=== PATIENT | female | born 1990 | race Caucasian/White ===

== ENCOUNTER 2016-11-13 04:29 | Emergency (ER) | payer OTHER ==
[2016-11-13] MEDS ORDERED: ONDANSETRON 4 MG/2 ML VIAL IVP STA (05:44)
[2016-11-13] MEDS ORDERED: SODIUM CHLORIDE 0.9% 1,000 ML IV ONE (05:44)
[2016-11-13] MEDS ORDERED: ONDANSETRON 4 MG/2 ML VIAL ONE (05:58)
== END 2016-11-13 08:59 | disposition home or self-care (01) ==
DX: K52.9 Noninfective gastroenteritis and colitis, unspecified (principal); E86.0 Dehydration; Z87.891 Personal history of nicotine dependence

== ENCOUNTER 2016-11-21 12:00 | Outpatient (CLI) | payer OTHER | END 2016-11-21 12:01 | disposition home or self-care (01) | DX: K52.9 Noninfective gastroenteritis and colitis, unspecified (principal) ==

== ENCOUNTER 2017-10-01 18:11 | Outpatient (CLI) | payer OTHER | END 2017-10-01 18:12 | disposition critical access hospital (66) | LOC: EMS 18:11 | PROVIDERS: ATTEND Surgery | DX: M54.2 Cervicalgia (principal); R20.2 Paresthesia of skin; V49.9XXA Car occupant (driver) (passenger) injured in unspecified traffic accident, initial encounter; Y92.414 Local residential or business street as the place of occurrence of the external cause | CPT/HCPCS: A0425; A0429 ==

== ENCOUNTER 2017-10-01 18:23 | Emergency (ER) | payer OTHER ==
[2017-10-01] MEDS ORDERED: LORazepam 2 MG/ML VIAL IVP STA (18:37)
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
[2017-10-01] MEDS ORDERED: LORazepam 2 MG/ML VIAL ONE (19:05)
[2017-10-01 19:07] LABS: BILIRUBIN,URINE NEGATIVE (NEGATIVE)
[2017-10-01 19:09] LABS: BASOPHILS # (AUTO) 0.1 10^3/uL (0.0-0.1); BASOPHILS % (AUTO) 1.2 %; EOSINOPHILS # (AUTO) 0.1 10^3/uL (0.0-0.7); EOSINOPHILS % (AUTO) 0.9 %; HCT - HEMATOCRIT 38.3 % (37.0-47.0); HGB - HEMOGLOBIN 12.8 g/dL (12.0-16.0); LYMPHOCYTES # (AUTO) 2.3 10^3/uL (1.5-3.5); LYMPHOCYTES % (AUTO) 35.5 %; MEAN CORPUSCULAR HEMOGLOBIN 31.2 pg (27.0-31.0); MEAN CORPUSCULAR HGB CONC 33.4 g/dL (32.0-36.0); MEAN CORPUSCULAR VOLUME 93.5 fL (81.0-99.0); MEAN PLATELET VOLUME 7.9 fL (7.9-10.8); MONOCYTES # (AUTO) 0.5 10^3/uL (0.0-1.0); NEUTROPHILS # (AUTO) 3.5 10^3/uL (1.5-6.6); NEUTROPHILS % (AUTO) 54.4 %; RED CELL DISTRIBUTION WIDTH 12.8 % (12.0-15.0); UNCORRECTED WHITE BLOOD COUNT 6.4 x10^3/uL; WHITE BLOOD COUNT 6.4 x10^3/uL (4.8-10.8)
[2017-10-01 19:10] LABS: HCG UR QUAL NEGATIVE; UA w/ MICROSCOPIC CHARGE YES
[2017-10-01 19:19] LABS: UR CULTURE IF IND NOT INDICATED; WBC,URINE 0-3 /HPF (0-5)
[2017-10-01 19:21] LABS: ALBUMIN/GLOBULIN RATIO 1.5 (1.0-2.2); BILIRUBIN,TOTAL 0.6 mg/dL (0.2-1.0); CALCIUM 8.6 mg/dL (8.5-10.3); CREATININE 0.7 mg/dL (0.4-1.0); POTASSIUM 3.1 mmol/L (3.5-5.0); TOTAL PROTEIN 6.9 g/dL (6.7-8.2)
[2017-10-01] MEDS ORDERED: KETOROLAC 60 MG/2 ML VIAL IVP STA (19:22)
[2017-10-01] MEDS ORDERED: KETOROLAC 30 MG/ML VIAL ONE (19:43)
[2017-10-01] MEDS ORDERED: diazePAM INJ 5 MG/ML SYRINGE IVP STA (20:06)
--- NOTE | 2017-10-01 20:37 | CT Preliminary Report ---
Exam: CT HEAD W/O IMPRESSION: No acute intracranial abnormality. [facility] SITE ID: [id number]
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
--- NOTE | 2017-10-01 20:40 | CT Preliminary Report ---
Exam: CT CERVICAL SPINE W/O IMPRESSION: Normal cervical spine CT. [facility] SITE ID: [id number]
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
[2017-10-01] MEDS ORDERED: HYDROcod/ACETAM 5/325 MG TABLET PO STA (20:50)
[2017-10-01] MEDS ORDERED: HYDROcod/ACETAM 5/325 MG TABLET ONE (21:00)
[2017-10-01] MEDS ORDERED: POTASSIUM BICARB 25 MEQ TABLET PO STA (21:08)
[2017-10-01] MEDS ORDERED: HYDROcod/ACET 5/325 Prepack 6 PO ONE ×2 (21:18→21:27)
[2017-10-01] MEDS ORDERED: POTASSIUM BICARB 25 MEQ TABLET PO ONE (21:28)
[2017-10-01 21:53] VITALS: BP 127/84
== END 2017-10-01 21:53 | disposition home or self-care (01) ==
LOC: EDUNIT# → ED 18:23 → SUPCPDRO 18:23 → ED 21:53
DX: S16.1XXA Strain of muscle, fascia and tendon at neck level, initial encounter (principal); V48.5XXA Car driver injured in noncollision transport accident in traffic accident, initial encounter; Y92.488 Other paved roadways as the place of occurrence of the external cause; E05.90 Thyrotoxicosis, unspecified without thyrotoxic crisis or storm; Z87.891 Personal history of nicotine dependence
CPT/HCPCS: 36415; 70450; 72125; 80053; 81001; 81025; 83690; 85025; 96374; 96375; 99284; A9270; J2060; 81003; 87086

== ENCOUNTER 2017-11-20 16:00 | Outpatient (CLI) | payer OTHER | END 2017-11-20 16:01 | disposition home or self-care (01) | LOC: LAB.WCP 16:00 | PROVIDERS: ATTEND Physician Assistant Medical | DX: J02.9 Acute pharyngitis, unspecified (principal) | CPT/HCPCS: 87070 ==

== ENCOUNTER 2018-05-06 10:47 | Emergency (ER) | payer OTHER ==
[2018-05-06 11:16] VITALS: BP 119/79
--- NOTE | 2018-05-06 12:23 | ED Physician Documentation ---
PD HPI LOWER EXT INJURY - Stated complaint Stated Complaint: R KNEE INJ - Chief complaint Chief Complaint: Ext Problem - History obtained from History obtained from: Patient - History of Present Illness PD HPI LOW EXT INJURY LOCATION: Right, Knee Type of injury: Twist Where injury occurred: Work Timing - onset: How many weeks ago (2) Timing - duration: Weeks (2) Timing - details: Abrupt onset, Still present (knee hurts with ROM and walking. Has small knee supporter on. Had xrays which were okay and taking NSAIDs. PCP put in for approval for MRI and awaiting that. Patient to ER hoping to get advanced imaging sooner.) Worsened by: Palpating, Other (walking) Associated symptoms: No: Weakness, Numbness Similar symptoms before: Has not had sx before Recently seen: Clinic Review of Systems Constitutional: denies: Fever Nose: denies: Rhinorrhea / runny nose, Congestion Throat: denies: Sore throat Respiratory: denies: Cough Skin: denies: Rash, Lesions Musculoskeletal: reports: Joint pain (right knee) Neurologic: denies: Focal weakness, Numbness PD PAST MEDICAL HISTORY - Past Medical History Past Medical History: Yes Cardiovascular: Murmur Endocrine/Autoimmune: HyPERthyroidism GI: 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 : Chronic bladder infection Psych: Anxiety, Panic attacks - Past Surgical History Past Surgical History: Yes General: Other - Present Medications Home Medications: Ambulatory Orders Medication Instructions Recorded Confirmed ALPRAZolam [Alprazolam] 0.25 mg PO DAILY PRN 03/15/16 10/01/17 Zolmitriptan [Zomig] 5 mg PO DAILY PRN 03/15/16 10/01/17 oxyCODONE/ACET 5/325 [Percocet 5 1 - 2 tab PO Q4-6H PRN #20 tablet 03/17/1609/07 mg/325 mg] Control Pills 1 tab PO DAILY 10/08/16 10/01/17 Ibuprofen [Motrin] 800 mg PO Q8H PRN #30 tablet 10/08/16 10/01/17 Ondansetron Odt [Zofran] 4 mg TL Q6H PRN #10 tablet 11/13/16 10/01/17 Dexamethasone [Decadron] 4 mg PO DAILY #5 tablet 05/06/18 Naproxen [Naprosyn] 500 mg PO BID PRN #20 tablet 05/06/18 Oxycodone HCl/Acetaminophen 1 each PO Q6H PRN #20 tablet 05/06/18 [Percocet 5-325 mg Tablet] - Allergies Allergies/Adverse Reactions: Allergies Allergy/AdvReac Type Severity Reaction Status Date / Time ciprofloxacin [From Cipro] Allergy Hives Verified 05/06/18 11:16 ciprofloxacin HCl * Allergy Hives Verified 05/06/18 11:16 [From Cipro] fluticasone propionate * Allergy light Verified 05/06/18 11:16 [From Flonase] headed Sulfa (Sulfonamide Allergy Rash Verified 05/06/18 11:16 Antibiotics) sulfamethoxazole Allergy Unknown Verified 05/06/18 11:16 [From Septra] tramadol Allergy racing Verified 05/06/18 11:16 heart trimethoprim [From Septra] Allergy Unknown Verified 05/06/18 11:16 - Social History Does the pt smoke?: Yes Smoking Status: Current every day smoker Does the pt drink ETOH?: No Does the pt have substance abuse?: No - Immunizations Immunizations are current?: No Immunizations: TDAP >10years/unknown - POLST Patient has POLST: No PD ED PE NORMAL - Vitals Vital signs reviewed: Yes - General General: Alert and oriented X 3, Well developed/nourished, Other (appears in pain and also upset about the process of her knee not improving readily, getting exams, etc.) - Derm Derm: Normal color, Warm and dry, No rash - Extremities Extremities: No edema, No calf tenderness / cord, Other (no effusion in the knee. Right knee tender anterior and to sides. Not at collaterals per se. Ligament testing hurts in all directions some, but no gross laxity. impaction ( [place]) causes pain. ) - Neuro Neuro: No motor deficit, No sensory deficit Results - Vitals Vitals: Vital Signs - 24 hr 05/06/18 11:08 Temperature 37.1 C Heart Rate 79 Respiratory 16 Rate Blood Pressure 119/79 O2 Saturation 99 Oxygen O2 Source Room air PD MEDICAL DECISION MAKING - ED course Complexity details: considered differential (sounds like meniscal process. Given hinged knee brace (regular one she says puts pressure on kneecap and hurts too much). She feels this is okay and supports. She and friend were hoping coming to ER would get them MRI more promptly. I explained that nonemergent MRIs still need pre-approval/etc even through the ER. ), d/w patient - Sepsis Event Vital Signs: Vital Signs - 24 hr 05/06/18 11:08 Temperature 37.1 C Heart Rate 79 Respiratory 16 Rate Blood Pressure 119/79 O2 Saturation 99 Oxygen O2 Source Room air Departure - Departure Disposition: 01 Home, Self Care Clinical Impression: Right knee injury Qualifiers: Encounter type: initial encounter Qualified Code(s): S89.91XA - Unspecified injury of right lower leg, initial encounter Condition: Stable Record reviewed to determine appropriate education?: Yes Instructions: ED Meniscal Injury Knee Poss Follow-Up: [facility] [Provider Group] [place] isidro Marshall [Provider Group] Prescriptions: Dexamethasone [Decadron] 4 mg PO DAILY #5 tablet Naproxen [Naprosyn] 500 mg PO BID PRN #20 tablet PRN Reason: Pain Oxycodone HCl/Acetaminophen [Percocet 5-325 mg Tablet] 1 each PO Q6H PRN #20 tablet PRN Reason: Pain Comments: Try the hinged knee brace set to just slight range of motion along with your crutches for partial to no weightbearing. See if that improves the knee little bit better with better support. We can try a different anti-inflammatory of naproxen nonsteroidal anti-inflammatory and also Decadron steroid all anti- inflammatory. Follow-up with your primary care or orthopedics regarding further assessment. The MRI will need to get approval through [facility]. I know it can be frustrating. The above treatments would be appropriate for some of the findings that would be seen on MRI such as cartilage or ligament injury initially. So you are still doing the right things for the problems. Discharge Date/Time: 05/06/18 13:31
[2018-05-06] MEDS ORDERED: oxyCOD/ACETAMIN 5 MG/325 MG TABLET PO STA (12:43)
[2018-05-06] MEDS ORDERED: NAPROXEN 250 MG TABLET PO STA (12:43)
[2018-05-06] MEDS ORDERED: DEXAMETHASONE 10 MG/ML VIAL PO STA (12:43)
== END 2018-05-06 13:31 | disposition home or self-care (01) ==
LOC: ED 10:47
DX: S89.91XA Unspecified injury of right lower leg, initial encounter (principal); X58.XXXA Exposure to other specified factors, initial encounter; Y92.89 Other specified places as the place of occurrence of the external cause; Y99.0 Civilian activity done for income or pay
CPT/HCPCS: 99282; 99283; A9270

== ENCOUNTER 2018-05-16 08:32 | Outpatient (CLI) | payer OTHER ==
--- NOTE | 2018-05-16 10:53 | MRI Report ---
Procedure Date: 05/16/2018 Accession Number: [id number] / [id number] Procedure: MRI - Knee RT W/O CPT Code: FULL RESULT: EXAM: RIGHT KNEE MRI WITHOUT CONTRAST EXAM DATE: 05/16/2018 09:30 AM. CLINICAL HISTORY: Sprain of other specified parts of right knee. COMPARISON: Knee 2-view right 04/23/2018. TECHNIQUE: Multiplanar, multisequence T1-weighted and fluid-sensitive sequences of the knee without contrast. Other: None. FINDINGS: Bones: Mild marrow edema of the medial patella. Cartilage appears normal. Remaining bony structures unremarkable. Articular Cartilage: Unremarkable. Medial Meniscus: The medial meniscus is intact. Lateral Meniscus: The lateral meniscus is intact. Cruciate Ligaments: The anterior and posterior cruciate ligaments are intact. Collateral Ligaments: The medial collateral and lateral collateral ligamentous structures are intact. Tendons: The quadriceps, patellar, semimembranosus, and popliteus tendons are unremarkable. Musculature: No edema or fatty atrophy. Other: Trace joint fluid. No popliteal cyst. No loose bodies. The medial and lateral retinacula are intact. Mild posterior medial soft tissue edema. IMPRESSION: 1. Mild marrow edema at the medial patella likely a bone bruise. 2. No evidence of internal derangement. 3. Mild posterior medial soft tissue contusion. [facility] MUSCULOSKELETAL RADIOLOGY SECTION
== END 2018-05-16 08:33 | disposition home or self-care (01) ==
LOC: DI 08:32
PROVIDERS: ATTEND Physician Assistant Medical
DX: S83.8X1A Sprain of other specified parts of right knee, initial encounter (principal); S80.01XA Contusion of right knee, initial encounter; B34.9 Viral infection, unspecified

== ENCOUNTER 2019-01-23 08:51 | Emergency (ER) | payer OTHER ==
[2019-01-23 09:10] VITALS: BP 133/85
[2019-01-23] MEDS ORDERED: DEXAMETHASONE 10 MG/ML VIAL PO STA (09:34)
--- NOTE | 2019-01-23 09:34 | ED Physician Documentation ---
PD HPI HEENT - Stated complaint Stated Complaint: FEVER,ACHES,COUGH - Chief complaint Chief Complaint: General - History obtained from History obtained from: Patient - History of Present Illness Timing - onset: How many days ago (3-4) Timing - duration: Days (3-4) Timing - details: Gradual onset, Still present Location: Right ear, Left ear, Sinuses Improves: Medication Worsens: Swalllowing Associated symptoms: Fever, Congestion, Rhinorrhea, Swollen nodes, Facial swelling, Headache, Cough Similar symptoms before: Has not had sx before Recently seen: Not recently seen - Additional information Additional information: Previously well 28-year-old female has developed nasal congestion cough fever chills myalgias and sinus pressure as well as ear pain that has migrated from the right to the left ear. Review of Systems Constitutional: reports: Fever, Chills, Myalgias, Fatigue Eyes: denies: Decreased vision Ears: reports: Ear pain Nose: reports: Rhinorrhea / runny nose, Congestion, Sinus pressure / pain Throat: reports: Sore throat Cardiac: denies: Chest pain / pressure, Palpitations Respiratory: reports: Cough. 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 : Chronic bladder infection Psych: Anxiety, Panic attacks - Past Surgical History Past Surgical History: Yes General: Other - Present Medications Home Medications: Ambulatory Orders Medication Instructions Recorded Confirmed ALPRAZolam [Alprazolam] 0.25 mg PO DAILY PRN 03/15/16 10/01/17 Zolmitriptan [Zomig] 5 mg PO DAILY PRN 03/15/16 10/01/17 oxyCODONE/ACET 5/325 [Percocet 5 1 - 2 tab PO Q4-6H PRN #20 tablet 03/17/16 10/01/17 mg/325 mg] Control Pills 1 tab PO DAILY 10/08/16 10/01/17 Ibuprofen [Motrin] 800 mg PO Q8H PRN #30 tablet 10/08/16 10/01/17 Ondansetron Odt [Zofran] 4 mg TL Q6H PRN #10 tablet 11/13/16 10/01/17 Dexamethasone [Decadron] 4 mg PO DAILY #5 tablet 05/06/18 Naproxen [Naprosyn] 500 mg PO BID PRN #20 tablet 05/06/18 Oxycodone HCl/Acetaminophen 1 each PO Q6H PRN #20 tablet 05/06/18 [Percocet 5-325 mg Tablet] Amox/Clav 875/125 [Augmentin] 1 each PO Q12H #20 tablet 01/23/19 - Allergies Allergies/Adverse Reactions: Allergies Allergy/AdvReac Type Severity Reaction Status Date / Time ciprofloxacin [From Cipro] Allergy Hives Verified 01/23/19 09:10 ciprofloxacin HCl * Allergy Hives Verified 01/23/19 09:10 [From Cipro] fluticasone propionate * Allergy light Verified 01/23/19 09:10 [From Flonase] headed Sulfa (Sulfonamide Allergy Rash Verified 01/23/19 09:10 Antibiotics) sulfamethoxazole Allergy Unknown Verified 01/23/19 09:10 [From Septra] tramadol Allergy racing Verified 01/23/19 09:10 heart trimethoprim [From Septra] Allergy Unknown Verified 01/23/19 09:10 - Social History Does the pt smoke?: Yes Smoking Status: Current every day smoker Does the pt drink ETOH?: No Does the pt have substance abuse?: No - Immunizations Immunizations are current?: No Immunizations: TDAP >10years/unknown - POLST Patient has POLST: No PD ED PE NORMAL - Vitals Vital signs reviewed: Yes (hypertension mild diastolic ) - General General: Alert and oriented X 3, No acute distress, Well developed/nourished, Other (obvious mid facial swelling ) - HEENT HEENT: Atraumatic, PERRL, EOMI, Pharynx benign, Other (The left TM is inflamed with rounding of the landmarks and the right is only peripherally inflamed. There is bilateral maxillary sinus point tenderness) - Neck Neck: Supple, no meningeal sign, No bony TTP - Cardiac Cardiac: RRR, No murmur - Respiratory Respiratory: No respiratory distress, Clear bilaterally - Abdomen Abdomen: Soft, Non tender - Back Back: No CVA TTP, No spinal TTP - Derm Derm: Normal color, Warm and dry, No rash - Extremities Extremities: No deformity, No edema - Neuro Neuro: Alert and oriented X 3, solution specialist 2-12 intact, No motor deficit, No sensory deficit, Normal speech Eye Opening: Spontaneous Motor: Obeys Commands Verbal: Oriented GCS Score: 15 - Psych Psych: Normal mood, Normal affect Results - Vitals Vitals: Vital Signs - 24 hr 01/23/19 09:00 Temperature 36.6 C Heart Rate 100 Respiratory 16 Rate Blood Pressure 133/85 H O2 Saturation 99 Oxygen O2 Source Room air - Labs Labs: Laboratory Tests 01/23/19 09:05 Influenza A (Rapid) Negative Influenza B (Rapid) Negative PD MEDICAL DECISION MAKING - ED course Complexity details: reviewed old records, considered differential, d/w patient ED course: 28-year-old female with acute respiratory illness has otitis on exam and sinusitis and she is administered dexamethasone 10 mg orally we will place her on some Augmentin and she will continue her DayQuil. Departure - Departure Disposition: 01 Home, Self Care Clinical Impression: Sinusitis Qualifiers: Sinusitis location: maxillary Chronicity: acute Recurrence: recurrent Qualified Code(s): J01.01 - Acute recurrent maxillary sinusitis Otitis media Qualifiers: Otitis media type: suppurative Chronicity: acute Laterality: left Recurrence: not specified as recurrent Spontaneous tympanic membrane rupture: without spontaneous rupture Qualified Code(s): H66.002 - Acute suppurative otitis media without spontaneous rupture of ear drum, left ear Condition: Stable Instructions: ED Sinusitis Abx Tx, ED Otitis Media Acute Adult Follow-Up: Dorothy Alvarez PA-C [Primary Care Provider] - Prescriptions: Amox/Clav 875/125 [Augmentin] 1 each PO Q12H #20 tablet Forms: Activity restrictions
[2019-01-23] MEDS ORDERED: CHERRY SYRUP 10 ML UDC PO ONE (09:42)
== END 2019-01-23 09:41 | disposition home or self-care (01) ==
LOC: ED 08:51
DX: J01.01 Acute recurrent maxillary sinusitis (principal); H66.002 Acute suppurative otitis media without spontaneous rupture of ear drum, left ear; F17.200 Nicotine dependence, unspecified, uncomplicated
CPT/HCPCS: 87275; 87276; 99283; A9270

== ENCOUNTER 2019-06-12 10:23 | Emergency (ER) | payer OTHER ==
[2019-06-12] MEDS ORDERED: IBUPROFEN 800 MG TABLET PO STA (11:21)
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
[2019-06-12 11:34] VITALS: BP 118/84
== END 2019-06-12 11:33 | disposition home or self-care (01) ==
LOC: ED 10:23
DX: S16.1XXA Strain of muscle, fascia and tendon at neck level, initial encounter (principal); V43.12XA Car passenger injured in collision with other type car in nontraffic accident, initial encounter; Y93.89 Activity, other specified; Y92.511 Restaurant or cafe as the place of occurrence of the external cause; F17.200 Nicotine dependence, unspecified, uncomplicated
CPT/HCPCS: 99282; 99284; A9270

== ENCOUNTER 2019-06-14 21:18 | Emergency (ER) | payer OTHER ==
[2019-06-14 21:31] VITALS: BP 127/96
--- NOTE | 2019-06-14 22:19 | XRAY Report ---
Reason: wellness assistant lid vs foot Procedure Date: 06/14/2019 Accession Number: [id number] / [id number] Procedure: XR - Foot 3 View LT CPT Code: FULL RESULT: EXAM: LEFT FOOT RADIOGRAPHY EXAM DATE: 06/14/2019 09:47 PM. 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 Sas Programmer Analyst was dropped on the dorsum of the foot. Left-sided foot pain. COMPARISON: None. TECHNIQUE: 3 views. FINDINGS: Bones: Artifact versus a subtle nondisplaced transverse fracture at the base of the third metatarsal. Joints: No dislocation. Soft Tissues: No significant soft tissue swelling. IMPRESSION: Artifact versus a subtle nondisplaced fracture at the base of the third metatarsal. Correlation with focal tenderness over the third metatarsal base would be helpful. RADIA
[2019-06-14] MEDS ORDERED: HYDROcod/ACET 5/325 Prepack 4 PO STA (22:35)
--- NOTE | 2019-06-14 22:38 | ED Physician Documentation ---
PD HPI LOWER EXT INJURY - Stated complaint Stated Complaint: L FOOT INJURY - Chief complaint Chief Complaint: Ext Problem - History obtained from History obtained from: Patient - History of Present Illness PD HPI LOW EXT INJURY LOCATION: Left (29-year-old woman was at work tonight and dropped a piece of equipment on her left foot and has severe pain there. Unable to walk. 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 : Chronic bladder infection Psych: Anxiety, Panic attacks - Past Surgical History Past Surgical History: Yes General: Other - Present Medications Home Medications: Ambulatory Orders Medication Instructions Recorded Confirmed ALPRAZolam [Alprazolam] 0.25 mg PO DAILY PRN 03/15/16 10/01/17 oxyCODONE/ACET 5/325 [Percocet 5 1 - 2 tab PO Q4-6H PRN #20 tablet 03/17/16 10/01/17 mg/325 mg] Control Pills 1 tab PO DAILY 10/08/16 10/01/17 Hydrocodone/Acetaminophen 1 - 2 each PO Q6H PRN #14 tablet 06/14/19 [Hydrocodon-Acetaminophen 5-325] - Allergies Allergies/Adverse Reactions: Allergies Allergy/AdvReac Type Severity Reaction Status Date / Time ciprofloxacin [From Cipro] Allergy Hives Verified 06/14/19 21:25 ciprofloxacin HCl * Allergy Hives Verified 06/14/19 21:25 [From Cipro] fluticasone propionate * Allergy light Verified 06/14/19 21:25 [From Flonase] headed Sulfa (Sulfonamide Allergy Rash Verified 06/14/19 21:25 Antibiotics) sulfamethoxazole Allergy Unknown Verified 06/14/19 21:25 [From Septra] tramadol Allergy racing Verified 06/14/19 21:25 heart trimethoprim [From Septra] Allergy Unknown Verified 06/14/19 21:25 - Social History Does the pt smoke?: Yes Smoking Status: Current every day smoker Does the pt drink ETOH?: No Does the pt have substance abuse?: No - Immunizations Immunizations are current?: No Immunizations: TDAP >10years/unknown - POLST Patient has POLST: No PD ED PE NORMAL - Vitals Vital signs reviewed: Yes - General General: Alert and oriented X 3, No acute distress - Extremities Extremities: Other (She is focally tender at the base of the third metatarsal of the left foot without deformity. Normal neurovascular function.) - Neuro Neuro: Alert and oriented X 3, Normal speech Results - Vitals Vitals: Vital Signs - 24 hr 06/14/19 21:23 Temperature 36.5 C Heart Rate 103 H Respiratory 18 Rate Blood Pressure 127/96 H O2 Saturation 100 Oxygen O2 Source Room air - Rads (name of study) Three-view left foot Radiology: EMP read contemporaneously (Questionable nondisplaced fracture at the proximal third metatarsal) Procedures - Splint (location) Left foot Splint applied by: Tech Type of splint: Fiberglass, Short leg, Posterior Other: Patient tolerated well, No complications, Neurovascular intact, Crutches provided Departure - Departure Disposition: 01 Home, Self Care Clinical Impression: Closed fracture of third metatarsal bone of left foot Qualifiers: Encounter type: initial encounter Fracture alignment: nondisplaced Qualified Code(s): S92.335A - Nondisplaced fracture of third metatarsal bone, left foot, initial encounter for closed fracture Condition: Good Record reviewed to determine appropriate education?: Yes Instructions: ED Fx Foot Follow-Up: [facility] [Provider Group] - Within 1 week Prescriptions: Hydrocodone/Acetaminophen [Hydrocodon-Acetaminophen 5-325] 1 - 2 each PO Q6H PRN #14 tablet PRN Reason: pain Comments: Keep the splint on and dry, do not walk or bear weight on the foot until following up with orthopedics. Return for new or worsening symptoms. Forms: Activity restrictions
[2019-06-14] MEDS ORDERED: KETOROLAC 60 MG/2 ML VIAL IM STA (22:59)
== END 2019-06-14 23:45 | disposition home or self-care (01) ==
LOC: ED 21:18
DX: S92.335A Nondisplaced fracture of third metatarsal bone, left foot, initial encounter for closed fracture (principal); W20.8XXA Other cause of strike by thrown, projected or falling object, initial encounter; Y99.0 Civilian activity done for income or pay; F17.200 Nicotine dependence, unspecified, uncomplicated
CPT/HCPCS: 1040M; 29515; 73630; 96372; 99283

== ENCOUNTER 2020-06-12 12:31 | Emergency (ER) | payer OTHER ==
[2020-06-12] MEDS ORDERED: DEXAMETHASONE 10 MG/ML VIAL IM STA (12:55)
[2020-06-12] MEDS ORDERED: HYDROmorphone 1 MG/ML CARPUJECT IM STA (12:55)
--- NOTE | 2020-06-12 12:58 | ED Physician Documentation ---
PD HPI BACK PAIN - Stated complaint Stated Complaint: BACK PX/LEG NUMB - Chief complaint Chief Complaint: Back Pain - History obtained from History obtained from: Patient - Additional information Additional information: 8 days ago she was carrying a keg, actually several kegs upstairs at work. She felt sore after but then has developed progressive low back pain on the left side radiating into the left leg with numbness of the anterior left mcfadden. No bowel or bladder problems. No saddle anesthesia, no incontinence, no fevers. No history of back issues. 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 : Chronic bladder infection Psych: Anxiety, Panic attacks - Past Surgical History Past Surgical History: Yes General: Other - Present Medications Home Medications: Ambulatory Orders Medication Instructions Recorded Confirmed ALPRAZolam [Alprazolam] 0.25 mg PO DAILY PRN 03/15/16 10/01/17 oxyCODONE/ACET 5/325 [Percocet 5 1 - 2 tab PO Q4-6H PRN #20 tablet 03/17/16 10/01/17 mg/325 mg] Control Pills 1 tab PO DAILY 10/08/16 10/01/17 Hydrocodone/Acetaminophen 1 - 2 each PO Q6H PRN #14 tablet 06/14/19 [Hydrocodon-Acetaminophen 5-325] Cyclobenzaprine [Flexeril] 10 mg PO TID PRN #20 tablet 06/12/20 Oxycodone HCl/Acetaminophen 1 - 2 each PO Q6H PRN #14 tablet 06/12/20 [Percocet 5-325 mg Tablet] predniSONE [Deltasone] 20 mg PO [id number] #21 tab 06/12/20 - Allergies Allergies/Adverse Reactions: Allergies Allergy/AdvReac Type Severity Reaction Status Date / Time ciprofloxacin [From Cipro] Allergy Hives Verified 06/12/20 12:38 ciprofloxacin HCl * Allergy Hives Verified 06/12/20 12:38 [From Cipro] fluticasone propionate * Allergy light Verified 06/12/20 12:38 [From Flonase] headed Sulfa (Sulfonamide Allergy Rash Verified 06/12/20 12:38 Antibiotics) sulfamethoxazole Allergy Unknown Verified 06/12/20 12:38 [From ] tramadol Allergy racing Verified 06/12/20 12:38 heart trimethoprim [From ] Allergy Unknown Verified 06/12/20 12:38 - Social History Does the pt smoke?: Yes Smoking Status: Current every day smoker Does the pt drink ETOH?: No Does the pt have substance abuse?: No - Immunizations Immunizations are current?: No Immunizations: TDAP >10years/unknown - POLST Patient has POLST: No PD ED PE NORMAL - Vitals Vital signs reviewed: Yes - General General: Alert and oriented X 3, No acute distress - Back Back: No spinal TTP, Other (TTP L sciatic notch) - Extremities Extremities: Other (Mild numbness in the left lower extremity especially to the anterior mcfadden without diminished patellar or Achilles reflexes. Normal strength in flexion and extension of the great toe and at the knee.) - Neuro Neuro: Alert and oriented X 3, Normal speech Eye Opening: Spontaneous Motor: Obeys Commands Verbal: Oriented GCS Score: 15 - Psych Psych: Normal mood, Normal affect Results - Vitals Vitals: Vital Signs - 24 hr 06/12/20 12:35 Temperature 37 C Heart Rate 121 H Respiratory 22 Rate Blood Pressure 140/81 H O2 Saturation 100 Oxygen O2 Source Room air PD MEDICAL DECISION MAKING - ED course ED course: This patient has seemingly uncomplicated musculoskeletal back pain. The patient has no "red flags." Specifically denies IV drug use, fevers, incontinence, saddle anesthesia. Spinal epidural abscess was considered, given that the patient has no fever, is not diabetic, has no spinal tenderness, does not use IV drugs, and has no bilateral neurologic symptoms, the diagnosis of spinal epidural abscess is considered exceedingly unlikely. Departure - Departure Disposition: 01 Home, Self Care Clinical Impression: Sciatica Qualifiers: Laterality: left Qualified Code(s): M54.32 - Sciatica, left side Condition: Good Record reviewed to determine appropriate education?: Yes Instructions: ED Sciatica Prescriptions: predniSONE [Deltasone] 20 mg PO [id number] #21 tab Cyclobenzaprine [Flexeril] 10 mg PO TID PRN #20 tablet PRN Reason: Spasms Oxycodone HCl/Acetaminophen [Percocet 5-325 mg Tablet] 1 - 2 each PO Q6H PRN #14 tablet PRN Reason: pain Comments: You can continue the naproxen you are already taking along with the current medications. Do not drink or drive while taking prescription pain medications or muscle relaxers. First dose of steroids should be tomorrow morning. Return for new or worsening symptoms. Follow-up with your primary care physician in 1 to 2 weeks for recheck. I also wrote a order for physical therapy to evaluate and treat left-sided sciatica 3 times a week for 6 weeks. Forms: Activity restrictions
[2020-06-12 13:46] VITALS: BP 127/62
== END 2020-06-12 13:45 | disposition home or self-care (01) ==
LOC: ED 12:31
DX: M54.42 Lumbago with sciatica, left side (principal); X50.0XXA Overexertion from strenuous movement or load, initial encounter; Y93.89 Activity, other specified; Y99.0 Civilian activity done for income or pay; F17.200 Nicotine dependence, unspecified, uncomplicated
CPT/HCPCS: 1040M; 96372; 99283; 99284; J1170

== ENCOUNTER 2020-06-22 15:11 | Outpatient (CLI) | payer OTHER ==
--- NOTE | 2020-06-22 15:15 | XRAY Report ---
PROCEDURE: Lumbar Spine 2 View INDICATIONS: LOWER BACK STRAIN L I TECHNIQUE: 2 views of the lumbar spine were acquired. COMPARISON: CT dated 03/17/2016. FINDINGS: Bones: 5 [id number] vertebrae are present. There is minimal dextrocurvature of the lumbar spin e likely positional. Overall, normal bony alignment. No vertebral body compression fractures. No flowers spicious bony lesions. Soft tissues: Overlying bowel gas pattern is normal. No suspicious soft tissue calcifications. IMPRESSION: Lumbar spine without acute osseous abnormalities. No significant degenerative change. Reviewed by: Tommy Chauhan MD on 06/22/2020 3:14 PM PDT Approved by: Tommy Chauhan MD on 06/22/2020 3:14 PM PDT Station ID: [id number]
== END 2020-06-22 23:59 | disposition home or self-care (01) ==
LOC: DI.WCP 15:11
PROVIDERS: ATTEND Physician Assistant
DX: S39.012A Strain of muscle, fascia and tendon of lower back, initial encounter (principal)
CPT/HCPCS: 72100

== ENCOUNTER 2020-12-02 09:00 | Outpatient (CLI) | payer SELFPAY | END 2020-12-02 23:59 | disposition home or self-care (01) | LOC: LAB.R 09:00 | PROVIDERS: ATTEND Nurse Practitioner Family | DX: N39.0 Urinary tract infection, site not specified (principal) | CPT/HCPCS: 87086 ==

== ENCOUNTER 2020-12-21 08:21 | Outpatient (CLI) | payer SELFPAY ==
--- NOTE | 2020-12-21 14:43 | XRAY Report ---
PROCEDURE: Shoulder 3 View LT INDICATIONS: STRAIN OF MUSCLES, AND TENDON OF ROTATOR CUFF, L SHOULDER TECHNIQUE: 3 views of the shoulder were acquired. COMPARISON: None. FINDINGS: Bones: No fractures or dislocations. No suspicious bony lesions. Visualized ribs appear intact. T here is a slight high riding appearance of the humeral head. Soft tissues: No suspicious soft tissue calcifications. IMPRESSION: High riding humeral head which can be seen with rotator cuff pathology. MRI shoulder is recommended if clinically indicated. Reviewed by: Mary Medel MD on 12/21/2020 2:42 PM PST Approved by: Mary Medel MD on 12/21/2020 2:42 PM [facility] Station ID: [id number]
== END 2020-12-21 23:59 | disposition home or self-care (01) ==
LOC: DI.N 08:21
PROVIDERS: ATTEND Physician Assistant Medical
DX: M25.512 Pain in left shoulder (principal); S46.0 Injury of muscle(s) and tendon(s) of the rotator cuff of shoulder

== ENCOUNTER 2022-11-07 08:23 | Emergency (ER) | payer SELFPAY ==
[2022-11-07] MEDS ORDERED: MORPHINE 2 MG/ML CARPUJECT IVP STA (08:39)
[2022-11-07] MEDS ORDERED: KETOROLAC 30 MG/ML VIAL IVP STA (08:39)
[2022-11-07] MEDS ORDERED: ONDANSETRON 4 MG/2 ML VIAL IVP STA (08:39)
[2022-11-07] MEDS ORDERED: SODIUM CHLORIDE 0.9% 1,000 ML IV STA (08:39)
[2022-11-07 08:52] LABS: HCG UR QUAL NEGATIVE
[2022-11-07 08:55] LABS: BASOPHILS # (AUTO) 0.1 10^3/uL (0.0-0.1); BASOPHILS % (AUTO) 1.8 %; EOSINOPHILS # (AUTO) 0.5 10^3/uL (0.0-0.7); EOSINOPHILS % (AUTO) 8.1 %; HCT - HEMATOCRIT 42.4 % (37.0-47.0); HGB - HEMOGLOBIN 13.9 g/dL (12.0-16.0); LYMPHOCYTES # (AUTO) 2.8 10^3/uL (1.5-3.5); LYMPHOCYTES % (AUTO) 42.9 %; MEAN CORPUSCULAR HEMOGLOBIN 30.2 pg (27.0-31.0); MEAN CORPUSCULAR HGB CONC 32.8 g/dL (32.0-36.0); MEAN PLATELET VOLUME 9.9 fL (7.9-10.8); MONOCYTES # (AUTO) 0.6 10^3/uL (0.0-1.0); NEUTROPHILS # (AUTO) 2.5 10^3/uL (1.5-6.6); PLT - PLATELET COUNT 442 10^3/uL (130-450); RED BLOOD COUNT 4.61 10^6/uL (4.20-5.40); RED CELL DISTRIBUTION WIDTH 12.6 % (12.0-15.0); WHITE BLOOD COUNT 6.5 x10^3/uL (4.8-10.8)
[2022-11-07 09:05] LABS: ALBUMIN 4.5 g/dL (3.2-5.5); ALBUMIN/GLOBULIN RATIO 1.6 (1.0-2.2); BILIRUBIN,TOTAL 0.7 mg/dL (0.2-1.0); CREATININE 0.9 mg/dL (0.4-1.0); POTASSIUM 3.1 mmol/L (3.5-5.0); TOTAL PROTEIN 7.3 g/dL (6.7-8.2)
--- OUTSIDE RECORDS SUMMARY | 2022-11-07 09:26 | EXTERNAL MEDICAL SUMMARY RPT | Continuity of Care Document ---
:1990 Author Organization [facility] Address [address] [place] [address] Phone Care Team Providers Name Role Phone Cinthia García Unavailable Unavailable Allergies No information. Encounters No information. Functional Status No information. Immunizations No information. Medications date description facility 2022-08-09 00:00 medroxyprogesterone All 2022-08-09 00:00 medroxyprogesterone All 2022-08-09 00:00 medroxyprogesterone All 2022-08-09 00:00 medroxyprogesterone All Problems No information. Procedures No information. Results/Labs No information. Social History No information. Vital Signs No information.
[2022-11-07 09:29] LABS: BILIRUBIN,URINE NEGATIVE (NEGATIVE); GLUCOSE, URINE (UA) NEGATIVE (NEGATIVE); KETONES,URINE (UA) NEGATIVE (NEGATIVE); LEUKOCYTE ESTERASE, URINE NEGATIVE (NEGATIVE); NITRITE,URINE POSITIVE (NEGATIVE); OCCULT BLOOD,URINE LARGE (NEGATIVE); PROTEIN,URINE 30 mg/dL (NEGATIVE); UROBILINOGEN,URINE 0.2 (NORMAL) E.U./dL (NORMAL)
[2022-11-07 09:31] LABS: CLARITY,URINE CLEAR (CLEAR)
[2022-11-07 09:39] LABS: BACTERIA,URINE Few /HPF (None Seen); MUCUS,URINE Few Strands; SQUAMOUS EPITHELIAL CELL,UR MOD Squamous (<= Few); WBC,URINE 0-3 /HPF (0-5)
--- NOTE | 2022-11-07 13:02 | CT Report ---
PROCEDURE: ABDOMEN/PELVIS WO INDICATIONS: L flank pain TECHNIQUE: Noncontrast 5 mm thick sections acquired from the diaphragms to the symphysis. 5 mm coronal and sagi ttal reformats were then performed. For radiation dose reduction, the following was used: automated exposure control, adjustment of mA and/or kV according to patient size. COMPARISON: CT of abdomen and pelvis without, 03/17/2016 and 07/30/2013.. FINDINGS: Image quality: Excellent. ABDOMEN: Lung bases: Lung bases are clear. Heart size is normal. Solid organs: Liver and spleen are normal in size. Gallbladder is normal. Pancreas is normal in co ntours. No adrenal nodules. Kidneys are normal in size. There is trace left renal pelviectasis. No left renal calculi or ureteral calculi. There are 3-4 nonobstructive small right renal calculi measuring 1-2 mm . No right hydronep hrosis. There is a 3 mm stone at the right bladder base. Peritoneum and bowel: Unenhanced bowel loops demonstrate normal wall thickness and caliber. There a re a few colonic diverticula. No acute diverticulitis. No free fluid or air. Nodes and vessels: No retroperitoneal or mesenteric adenopathy by size criteria. Aorta and inferior vena cava are normal in caliber. Miscellaneous: No ventral hernias. PELVIS: Genitourinary: Uterus and ovaries are grossly normal. No free fluid in pelvis. Miscellaneous: No inguinal hernias or adenopathy. Bones: No suspicious bony lesions. No vertebral body compression fractures. IMPRESSION: 1. Trace left renal pelviectasis. No left renal or ureteral stones are identified. There is a [address] one in the right side of the bladder base, compatible with a recently passed stone. 2. Nephrolithiasis with several 1-2 mm nonobstructive calculus in right kidney. 3. Mild diverticulosis. No acute diverticulitis. Reviewed by: Shasha Means MD on 11/07/2022 12:00 PM [facility] Approved by: Shasha Means MD on 11/07/2022 12:00 PM [facility] Station ID: [id number]
[2022-11-07] MEDS ORDERED: cephALEXin 250 MG CAPSULE PO STA (13:05)
[2022-11-07] MEDS ORDERED: oxyCODONE 5 MG TABLET PO STA (13:05)
[2022-11-07] MEDS ORDERED: NITROFURANTOIN MACRO 100 MG CAPSULE PO STA (13:17)
--- NOTE | 2022-11-07 13:17 | ED Physician Documentation ---
PD HPI ABD PAIN - Stated complaint Stated Complaint: ABD PX, BACK PX, - Chief complaint Chief Complaint: Abd Pain - History obtained from History obtained from: Patient - Additional information Additional information: Pt with history of endometriosis and kidney stones presenting for evaluation of L flank pain with N/V since this morning and also noted dysuria for the past day. No fevers. Pain radiates to L lower abdomen. Nothing makes it better. No hematuria. Denies concern for . 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 : Chronic bladder infection HEENT: None Psych: Anxiety, Panic attacks Musculoskeletal: None Derm: None - Past Surgical History Past Surgical History: Yes General: Other - Present Medications Home Medications: Ambulatory Orders Medication Instructions Recorded Confirmed Diclofenac Sodium [Voltaren 4 gm TP QID #240 gm 05/03/22 Arthritis Pain] Escitalopram Oxalate [Lexapro] 20 mg PO DAILY 05/03/22 05/03/22 Ibuprofen [Motrin] 600 mg PO Q6H PRN #30 tab 05/03/22 Medroxyprogesterone Acetate 150 mg IM ONCE 05/03/22 05/03/22 [Depo-Provera] Oxycodone HCl/Acetaminophen 1 - 2 each PO Q6H PRN #14 tablet 05/03/22 [Percocet 5-325 mg Tablet] Amoxicillin 500 mg PO TID 5 Days #15 cap 11/07/22 Ondansetron Odt [Zofran] 4 mg TL Q6H PRN #10 tablet 11/07/22 Oxycodone HCl/Acetaminophen 1 each PO Q6H PRN #14 tablet 11/07/22 [Percocet 5-325 mg Tablet] - Allergies Allergies/Adverse Reactions: Allergies Allergy/AdvReac Type Severity Reaction Status Date / Time ciprofloxacin [From Cipro] Allergy Hives Verified 05/03/22 18:23 ciprofloxacin HCl * Allergy Hives Verified 05/03/22 18:23 [From Cipro] fluticasone propionate * Allergy light Verified 05/03/22 18:23 [From Flonase] headed Sulfa (Sulfonamide Allergy Rash Verified 05/03/22 18:23 Antibiotics) sulfamethoxazole Allergy Unknown Verified 05/03/22 18:23 [From ] tramadol Allergy racing Verified 05/03/22 18:23 heart trimethoprim [From ] Allergy Unknown Verified 05/03/22 18:23 - Social History Does the pt smoke?: Yes Smoking Status: Current every day smoker Does the pt drink ETOH?: No Does the pt have substance abuse?: No - Immunizations Immunizations are current?: No Immunizations: TDAP >10years/unknown - POLST Patient has POLST: No PD ED PE NORMAL - General General: Alert and oriented X 3, No acute distress, Well developed/nourished - HEENT HEENT: Atraumatic - Neck Neck: Supple, no meningeal sign - Cardiac Cardiac: RRR - Respiratory Respiratory: No respiratory distress, Clear bilaterally - Abdomen Abdomen: Soft, Non tender, Non distended - Back Back: No CVA TTP - Derm Derm: Warm and dry Results - Vitals Vitals: Vital Signs - 24 hr 11/07/22 11/07/22 11/07/22 08:27 09:29 10:00 Temperature 37.2 C Heart Rate 98 75 82 Respiratory 18 16 20 Rate Blood Pressure 145/107 H 108/75 108/70 O2 Saturation 100 100 100 11/07/22 11/07/22 11/07/22 12:00 12:30 13:00 Temperature Heart Rate 87 84 100 Respiratory 17 16 16 Rate Blood Pressure 124/84 H 134/97 H 134/97 H O2 Saturation 100 100 100 11/07/22 13:30 Temperature 37.0 C Heart Rate 88 Respiratory 16 Rate Blood Pressure 132/88 H O2 Saturation 100 Oxygen O2 Source Room air - EKG (time done) 0845 Rate: Rate (enter#) (87) Rhythm: NSR Ischemia: No: ST elevation c/w ischemia - Labs Labs: Laboratory Tests 11/07/22 11/07/22 11/07/22 08:40 08:40 08:40 WBC 6.5 RBC 4.61 Hgb 13.9 Hct 42.4 MCV 92.0 MCH 30.2 MCHC 32.8 RDW 12.6 Plt Count 442 MPV 9.9 Neut # (Auto) 2.5 Lymph # (Auto) 2.8 [place] # (Auto) 0.6 Eos # (Auto) 0.5 Baso # (Auto) 0.1 Absolute Nucleated RBC 0.00 Nucleated RBC % 0.0 Sodium 134 L Potassium 3.1 L Chloride 101 Carbon Dioxide 20 L Anion Gap 13.0 BUN 9 Creatinine 0.9 Estimated GFR (MDRD) 72 L Glucose 118 H Calcium 9.0 Total Bilirubin 0.7 AST 14 ALT 11 Alkaline Phosphatase 77 Total Protein 7.3 Albumin 4.5 Globulin 2.8 Albumin/Globulin Ratio 1.6 Lipase 39 Urine Color Urine Clarity Urine pH Ur Specific [place] Urine Protein Urine Glucose (UA) Urine Ketones Urine Occult Blood Urine Nitrite Urine Bilirubin Urine Urobilinogen Ur Leukocyte Esterase Urine RBC Urine WBC Ur Squamous Epith Cells Urine Bacteria Urine Mucus Ur Microscopic Review Urine Culture Comments Urine HCG, Qual NEGATIVE 11/07/22 08:40 WBC RBC Hgb Hct MCV MCH MCHC RDW Plt Count MPV Neut # (Auto) Lymph # (Auto) [place] # (Auto) Eos # (Auto) Baso # (Auto) Absolute Nucleated RBC Nucleated RBC % Sodium Potassium Chloride Carbon Dioxide Anion Gap BUN Creatinine Estimated GFR (MDRD) Glucose Calcium Total Bilirubin AST ALT Alkaline Phosphatase Total Protein Albumin Globulin Albumin/Globulin Ratio Lipase Urine Color DARK YELLOW Urine Clarity CLEAR Urine pH 6.0 Ur Specific [place] >=1.030 H Urine Protein 30 H Urine Glucose (UA) NEGATIVE Urine Ketones NEGATIVE Urine Occult Blood LARGE H Urine Nitrite POSITIVE H Urine Bilirubin NEGATIVE Urine Urobilinogen 0.2 (NORMAL) Ur Leukocyte Esterase NEGATIVE Urine RBC 6-10 H Urine WBC 0-3 Ur Squamous Epith Cells MOD Squamous H Urine Bacteria Few Urine Mucus Few Strands Ur Microscopic Review INDICATED Urine Culture Comments NOT INDICATED Urine HCG, Qual PD Medical Decision Making - ED course Complexity details: reviewed results, re-evaluated patient, d/w patient, d/w family ED course: Pt with L flank pain and UTI symptoms. Labs reviewed. Mild hypokalemia which was replaced PO. U/A with markers for infection. CT with signs of recently passed stone into bladder. Discussed CT with patient. She is feeling better here. Reports numerous antibiotic allergies including some not entered in chart - will start on amoxicillin for UTI (says no reaction to PCN or amox in past) and also given small amount of pain/nausea meds. PPt counseled on need for f/u with PCP and advised on return precautions. Departure - Departure Disposition: Home, Self Care Clinical Impression: Bladder stone, UTI (urinary tract infection) Condition: Stable Instructions: ED UTI Cystitis Female, ED Stone Renal W Colic Prescriptions: Amoxicillin 500 mg PO TID 5 Days #15 cap Oxycodone HCl/Acetaminophen [Percocet 5-325 mg Tablet] 1 each PO Q6H PRN #14 tablet PRN Reason: pain Ondansetron Odt [Zofran] 4 mg TL Q6H PRN #10 tablet PRN Reason: Nausea / Vomiting Comments: You were found to have a stone that has made its way to the bladder. This is 3 mm and should be able to pass it now. Also concern you could have a urine infection and started you on an antibiotic. I sent your prescriptions to the [facility] pharmacy. I would encourage close follow-up with your primary care doctor if you are able to catch your stone as they can send it off for testing. Return to the ER with any worsening symptoms. Forms: Activity restrictions Discharge Date/Time: 11/07/22 13:50
[2022-11-07] MEDS ORDERED: POTASSIUM CHLORIDE 20 MEQ TABLET PO STA (13:22)
[2022-11-07 13:32] VITALS: BP 132/88
[2022-11-07] MEDS ORDERED: AMOXICILLIN 250 MG CAPSULE PO STA (13:34)
== END 2022-11-07 13:50 | disposition home or self-care (01) ==
LOC: ED 08:23
DX: N21.0 Calculus in bladder (principal); N39.0 Urinary tract infection, site not specified; E87.6 Hypokalemia; F17.200 Nicotine dependence, unspecified, uncomplicated
CPT/HCPCS: 36415; 74176; 80053; 81001; 81025; 83690; 85025; 93005; 96361; 96374; 99284; A9270; 81003; 87086

== ENCOUNTER 2022-12-22 21:38 | Emergency (ER) | payer SELFPAY ==
--- NOTE | 2022-12-22 22:35 | ED Physician Documentation ---
PD HPI GI BLEED - Stated complaint Stated Complaint: VOMITING BLACK FLUID - Chief complaint Chief Complaint: Abd Pain - History obtained from History obtained from: Patient - History of Present Illness Timing - onset: How many days ago (has had URI symptoms with poor PO intake and some nausea for 4 days. Taking Ibuprofen often for ahces/fevers. Went to work for [employer] today and feeling weak/tired. Onset of vomiting and noted some dark brown/black coloring to it. Had loose stool that was black. Feeling very weak.) Timing - duration: Days Timing - details: Gradual onset (She has had 3 to 4 days of general weakness, body aches, sore throat and less appetite. Poor p.o. intake over the last several days. Some chills. Onset today of vomiting and loose stool that appeared to be dark-colored.), Still present Associated symptoms: Coffee ground emesis (today), Black/tarry stool (today), Loss of appetite (for several days) Contributing factors: Sick contact (currently with URI/viral type symptoms.), NSAID use Review of Systems Constitutional: reports: Fever, Chills, Myalgias, Fatigue Nose: reports: Congestion. 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 : Chronic bladder infection HEENT: None Psych: Depression, Anxiety, Panic attacks Musculoskeletal: None Derm: None - Past Surgical History Past Surgical History: Yes General: Other - Present Medications Home Medications: Ambulatory Orders Medication Instructions Recorded Confirmed Medroxyprogesterone Acetate 150 mg IM ONCE 05/03/22 12/22/22 [Depo-Provera] Buspirone HCl 10 mg PO DAILY 12/22/22 12/22/22 Sertraline [Zoloft] 50 mg PO DAILY 12/22/22 12/22/22 buPROPion [Wellbutrin Xl] 150 mg PO DAILY 12/22/22 12/22/22 Lidocaine Viscous 2% [Xylocaine 5 ml PO Q4H PRN #100 ml 12/23/22 Viscous 2%] Ondansetron Odt [Zofran] 4 mg TL Q6H PRN #15 tablet 12/23/22 Pantoprazole [Protonix] 40 mg PO DAILY 30 Days #30 tablet 12/23/22 Promethazine [Phenergan] 25 mg PO Q6H PRN #10 tab 12/23/22 - Allergies Allergies/Adverse Reactions: Allergies Allergy/AdvReac Type Severity Reaction Status Date / Time ciprofloxacin [From Cipro] Allergy Hives Verified 12/22/22 22:05 ciprofloxacin HCl * Allergy Hives Verified 12/22/22 22:05 [From Cipro] fluticasone propionate * Allergy light Verified 12/22/22 22:05 [From Flonase] headed Sulfa (Sulfonamide Allergy Rash Verified 12/22/22 22:05 Antibiotics) sulfamethoxazole Allergy Unknown Verified 12/22/22 22:05 [From Septra] tramadol Allergy racing Verified 12/22/22 22:05 heart trimethoprim [From Septra] Allergy Unknown Verified 12/22/22 22:05 - Social History Does the pt smoke?: Yes Smoking Status: Current every day smoker Does the pt drink ETOH?: No Does the pt have substance abuse?: No - Immunizations Immunizations are current?: No Immunizations: TDAP >10years/unknown - POLST Patient has POLST: No PD ED PE NORMAL - Vitals Vital signs reviewed: Yes - General General: Alert and oriented X 3, Well developed/nourished, Other (emesis in ER with small amounts fluid that is coffee ground apearance. ) - Neck Neck: Supple, no meningeal sign, No adenopathy - Cardiac Cardiac: No: RRR (tachycardic but regular. ) - Respiratory Respiratory: No respiratory distress, Clear bilaterally - Abdomen Abdomen: Normal bowel sounds, Soft, Non distended, No organomegaly, Other (tender epigastric area. ) - Rectal Rectal: Deferred (she did have small stool into toilet hat, and able to test it directly, black colored and is guaiac negative. ) - Derm Derm: Normal color, Warm and dry - Neuro Neuro: Alert and oriented X 3, No motor deficit, Normal speech Results - Vitals Vitals: Vital Signs - 24 hr 12/22/22 12/22/22 12/23/22 22:05 23:57 02:25 Temperature 36.7 C Heart Rate 108 H 101 H 99 Respiratory 22 20 18 Rate Blood Pressure 146/88 H 106/66 103/61 O2 Saturation 100 98 99 12/23/22 02:28 Temperature 37.3 C Heart Rate Respiratory Rate Blood Pressure O2 Saturation Oxygen O2 Source Room air - Labs Labs: Microbiology 12/22/22 23:54 Occult Blood - Final Stool Laboratory Tests 12/22/22 12/22/22 12/22/22 22:04 22:31 22:34 WBC 8.6 RBC 4.10 L Hgb 12.3 Hct 37.4 MCV 91.2 MCH 30.0 MCHC 32.9 RDW 12.7 Plt Count 318 MPV 9.9 Neut # (Auto) 6.6 Lymph # (Auto) 0.9 L [place] # (Auto) 0.9 Eos # (Auto) 0.1 Baso # (Auto) 0.1 Absolute Nucleated RBC 0.00 Nucleated RBC % 0.0 Sodium Potassium Chloride Carbon Dioxide Anion Gap BUN Creatinine Estimated GFR (MDRD) Glucose Calcium Total Bilirubin AST ALT Alkaline Phosphatase Total Protein Albumin Globulin Albumin/Globulin Ratio Lipase Urine Color STRAW Urine Clarity CLEAR Urine pH 6.0 Ur Specific [place] <=1.005 Urine Protein NEGATIVE Urine Glucose (UA) NEGATIVE Urine Ketones 15 H Urine Occult Blood SMALL H Urine Nitrite NEGATIVE Urine Bilirubin NEGATIVE Urine Urobilinogen 0.2 (NORMAL) Ur Leukocyte Esterase NEGATIVE Urine RBC 0-5 Urine WBC 0-3 Ur Squamous Epith Cells RARE Squamous Urine Bacteria Rare Ur Microscopic Review INDICATED Urine Culture Comments NOT INDICATED Nasal Adenovirus (PCR) NOT DETECTED Nasal B. parapertussis DNA (PCR) NOT DETECTED Nasal Coronavir 229E PCR NOT DETECTED Nasal Coronavir HKU1 PCR NOT DETECTED Nasal Coronavir NL63 PCR NOT DETECTED Nasal Coronavir OC43 PCR NOT DETECTED Nasal Enterovir/Rhinovir PCR NOT DETECTED Nasal Influenza B PCR NOT DETECTED Nasal Influenza A PCR NOT DETECTED Nasal Parainfluen 1 PCR NOT DETECTED Nasal Parainfluen 2 PCR NOT DETECTED Nasal Parainfluen 3 PCR NOT DETECTED Nasal Parainfluen 4 PCR NOT DETECTED Nasal RSV (PCR) NOT DETECTED Nasal B.pertussis DNA PCR NOT DETECTED Nasal C.pneumoniae (PCR) NOT DETECTED [place] Human Metapneumo PCR DETECTED A Nasal M.pneumoniae (PCR) NOT DETECTED Nasal SARS-CoV-2 (PCR) NOT DETECTED 12/22/22 22:34 WBC RBC Hgb Hct MCV MCH MCHC RDW Plt Count MPV Neut # (Auto) Lymph # (Auto) [place] # (Auto) Eos # (Auto) Baso # (Auto) Absolute Nucleated RBC Nucleated RBC % Sodium 138 Potassium 3.3 L Chloride 101 Carbon Dioxide 23 Anion Gap 14.0 H BUN 22 H Creatinine 1.3 H Estimated GFR (MDRD) 47 L Glucose 88 Calcium 9.1 Total Bilirubin 0.8 AST 21 ALT 17 Alkaline Phosphatase 68 Total Protein 7.5 Albumin 4.4 Globulin 3.1 Albumin/Globulin Ratio 1.4 Lipase 37 Urine Color Urine Clarity Urine pH Ur Specific [place] Urine Protein Urine Glucose (UA) Urine Ketones Urine Occult Blood Urine Nitrite Urine Bilirubin Urine Urobilinogen Ur Leukocyte Esterase Urine RBC Urine WBC Ur Squamous Epith Cells Urine Bacteria Ur Microscopic Review Urine Culture Comments Nasal Adenovirus (PCR) Nasal B. parapertussis DNA (PCR) Nasal Coronavir 229E PCR Nasal Coronavir HKU1 PCR Nasal Coronavir NL63 PCR Nasal Coronavir OC43 PCR Nasal Enterovir/Rhinovir PCR Nasal Influenza B PCR Nasal Influenza A PCR Nasal Parainfluen 1 PCR Nasal Parainfluen 2 PCR Nasal Parainfluen 3 PCR Nasal Parainfluen 4 PCR Nasal RSV (PCR) Nasal B.pertussis DNA PCR Nasal C.pneumoniae (PCR) [place] Human Metapneumo PCR Nasal M.pneumoniae (PCR) Nasal SARS-CoV-2 (PCR) PD Medical Decision Making - ED course Complexity details: reviewed results, re-evaluated patient, considered dif ferential, d/w patient ED course: The patient presents with nausea for several days and general illness as well as some cough and nausea. She had onset of vomiting with some loose stool both of which had black color to it. Concern for bleeding. She had been using ibuprofen a lot over the last few days. Poor intake of food due to not feeling well so not eating much. She also was having some unusual foods with muscle fast. She did have emesis here that appeared coffee-ground. She did have a stool that was dark-colored and was guaiac positive. However her vital signs are good and her blood count is normal. She was given IV fluids as well as H2 rama and antiemetic. Improved With IV fluids and she is able to take fluids and some crackers. Her stomach is feeling less nauseous. She has some slight discomfort with eating. She did not have any further vomiting. She had another small bowel movement which was still dark-colored. I would anticipate some melena for another day or so assuming the gastritis stops bleeding. I think the gastritis is a combination of the viral illness and nausea along with less food intake concurrent with NSAID use over the last several days. I do not feel that she needs further intervention such as endoscopy or such and less there seems to be continued bleeding. Departure - Departure Disposition: 01 Home, Self Care Clinical Impression: Viral illness Nausea and vomiting Qualifiers: Vomiting type: hematemesis Qualified Code(s): K92.0 - Hematemesis Acute gastritis with bleeding Qualifiers: Gastritis type: unspecified gastritis Qualified Code(s): K29.01 - Acute gastritis with bleeding Condition: Stable Record reviewed to determine appropriate education?: Yes Instructions: ED Bleed UGI Stable, ED Nausea Vomiting Follow-Up: Cinthia Solomon ARNP [Primary Care Provider] - Prescriptions: Promethazine [Phenergan] 25 mg PO Q6H PRN #10 tab PRN Reason: Nausea / Vomiting Pantoprazole [Protonix] 40 mg PO DAILY 30 Days #30 tablet Lidocaine Viscous 2% [Xylocaine Viscous 2%] 5 ml PO Q4H PRN #100 ml PRN Reason: Pain Ondansetron Odt [Zofran] 4 mg TL Q6H PRN #15 tablet PRN Reason: Nausea / Vomiting Comments: You do have a virus on your respiratory viral panel called human mid and pneumo virus. This is essentially a flulike illness and usually is self-limited over 4 to 5 days. It can cause a nausea and vomiting and diarrhea as well. You do have bleeding from your stomach and that is the cause of the darkness in the vomit as well as the stool. This may be a combination of conditions leading to this including the nausea and vomiting from illness, there could be some food discomfort or disagreement bothering the stomach, the recent use of anti- inflammatories like ibuprofen irritating the stomach, all leading to enough irritation to cause some bleeding. Your blood count is good right now so your body should be able to tolerate a little bit of blood loss still with the gastritis. Recheck if significant amount more with the vomiting or stool. With the stopping of irritation and vomiting, the stomach should have the opportunity to heal. I would anticipate diminishing in stopping of the black color in your stool over the next couple of days and that would be an indicator of the stomach stop bleeding. You will likely have discomfort with eating so bland food and frequent fluids. Use Tylenol if needed for pain or fevers or aches. Avoid anti-inflammatories. Also avoid irritants such as coffee or spicy foods. I would suggest acid reducing medicine such as pantoprazole daily for the next f ew weeks as the stomach heals. In the short-term you can use antacid such as Maalox or Mylanta and could combine with that lidocaine to help with the stomach discomfort. Ondansetron if needed for nausea. You can add more use instead of promethazine if the Zofran does not as effective. Recheck if not improved well over the next few days. Off work Sunday and Sunday. I sent your prescriptions to your preferred pharmacy, the [facility] here in [place]. Forms: Activity restrictions Discharge Date/Time: 12/23/22 02:29
[2022-12-22 22:40] LABS: BILIRUBIN,URINE NEGATIVE (NEGATIVE); GLUCOSE, URINE (UA) NEGATIVE (NEGATIVE); KETONES,URINE (UA) 15 mg/dL (NEGATIVE); LEUKOCYTE ESTERASE, URINE NEGATIVE (NEGATIVE); NITRITE,URINE NEGATIVE (NEGATIVE); OCCULT BLOOD,URINE SMALL (NEGATIVE); PROTEIN,URINE NEGATIVE (NEGATIVE); UROBILINOGEN,URINE 0.2 (NORMAL) E.U./dL (NORMAL)
[2022-12-22 22:41] LABS: CLARITY,URINE CLEAR (CLEAR)
[2022-12-22 22:42] LABS: BASOPHILS # (AUTO) 0.1 10^3/uL (0.0-0.1); BASOPHILS % (AUTO) 0.9 %; EOSINOPHILS # (AUTO) 0.1 10^3/uL (0.0-0.7); HCT - HEMATOCRIT 37.4 % (37.0-47.0); HGB - HEMOGLOBIN 12.3 g/dL (12.0-16.0); LYMPHOCYTES # (AUTO) 0.9 10^3/uL (1.5-3.5); LYMPHOCYTES % (AUTO) 10.5 %; MEAN CORPUSCULAR HGB CONC 32.9 g/dL (32.0-36.0); MEAN CORPUSCULAR VOLUME 91.2 fL (81.0-99.0); MEAN PLATELET VOLUME 9.9 fL (7.9-10.8); MONOCYTES # (AUTO) 0.9 10^3/uL (0.0-1.0); MONOCYTES % (AUTO) 10.7 %; NEUTROPHILS # (AUTO) 6.6 10^3/uL (1.5-6.6); NEUTROPHILS % (AUTO) 76.6 %; PLT - PLATELET COUNT 318 10^3/uL (130-450); RED CELL DISTRIBUTION WIDTH 12.7 % (12.0-15.0); WHITE BLOOD COUNT 8.6 x10^3/uL (4.8-10.8)
[2022-12-22 22:48] LABS: BACTERIA,URINE Rare /HPF (None Seen); RBC,URINE 0-5 /HPF (0-5); SQUAMOUS EPITHELIAL CELL,UR RARE Squamous (<= Few); WBC,URINE 0-3 /HPF (0-5)
[2022-12-22 22:52] LABS: ALBUMIN 4.4 g/dL (3.2-5.5); ALBUMIN/GLOBULIN RATIO 1.4 (1.0-2.2); BILIRUBIN,TOTAL 0.8 mg/dL (0.2-1.0); CALCIUM 9.1 mg/dL (8.5-10.3); CREATININE 1.3 mg/dL (0.4-1.0); POTASSIUM 3.3 mmol/L (3.5-5.0); TOTAL PROTEIN 7.5 g/dL (6.7-8.2)
[2022-12-22] MEDS ORDERED: SODIUM CHLORIDE 0.9% 1,000 ML IV STA (23:13)
[2022-12-22] MEDS ORDERED: ONDANSETRON 4 MG/2 ML VIAL IVP STA (23:13)
[2022-12-22] MEDS ORDERED: FAMOTIDINE 20 MG/2 ML VIAL IVP STA (23:14)
[2022-12-22] MEDS ORDERED: LIDOCAINE VISCOUS 2% 15 ML UDC MM STA (23:15)
[2022-12-22] MEDS ORDERED: MAG HYDROX/AL HYDROX/SIMETH 30 ML UDC PO STA (23:15)
[2022-12-22 23:23] LABS: CORONAVIRUS 229E-RESP PCR NOT DETECTED; CORONAVIRUS HKU1-RESP PCR NOT DETECTED; CORONAVIRUS NL63-RESP PCR NOT DETECTED; CORONAVIRUS OC43-RESP PCR NOT DETECTED; SARS-CoV-2 -RESP PCR PANEL NOT DETECTED
[2022-12-22 23:24] LABS: B. PARAPERTUSSIS- RESP PCR PAN NOT DETECTED; B. PERTUSSIS- RESP PCR PANEL NOT DETECTED; C. PNEUMONIAE- RESP PCR PANEL NOT DETECTED; HUMAN METAPNEUMOVIRUS DETECTED; INFLUENZA A- RESP PCR PANEL NOT DETECTED; INFLUENZA B - RESP PCR PANEL NOT DETECTED; M. PNEUMONIAE- RESP PCR PANEL NOT DETECTED; PARAINFLUENZA VIRUS 1 NOT DETECTED; PARAINFLUENZA VIRUS 2 NOT DETECTED; PARAINFLUENZA VIRUS 3 NOT DETECTED; PARAINFLUENZA VIRUS 4 NOT DETECTED; RHINOVIRUS/ENTEROVIRUS NOT DETECTED; RSV- RESP PCR PANEL NOT DETECTED
[2022-12-22] MEDS ORDERED: LACTATED RINGERS 1,000 ML IV STA (23:49)
[2022-12-23] MEDS ORDERED: ONDANSETRON ODT 4 MG Prepack 2 TL PRN (01:37)
[2022-12-23 02:30] VITALS: BP 103/61
== END 2022-12-23 02:29 | disposition home or self-care (01) ==
LOC: ED 21:38
DX: B34.9 Viral infection, unspecified (principal); K92.0 Hematemesis; K29.01 Acute gastritis with bleeding; F17.200 Nicotine dependence, unspecified, uncomplicated; Z20.822 Contact with and (suspected) exposure to COVID-19
CPT/HCPCS: 1040M; 36415; 80053; 81001; 82272; 83690; 85025; 87633; 96361; 96374; 96375; 99283; 99284; A9270; J7120; 81003; 87086

== ENCOUNTER 2023-05-01 10:44 | Outpatient (CLI) | payer OTHER ==
--- NOTE | 2023-05-01 15:28 | XRAY Report ---
PROCEDURE: Ribs w/PA Chest RT INDICATIONS: RIB PAIN RIGHT SIDED/COSTOCHONDRITIS TECHNIQUE: 2 views of the right ribs were acquired, along with a single view chest. COMPARISON: None. FINDINGS: Surgical changes and devices: None. Bones and chest wall: No fractures or dislocations. No suspicious bony lesions. Overlying soft tis sues appear unremarkable. Lungs and pleura: No pleural effusions or pneumothorax. Lungs appear clear. Mediastinum: Mediastinal contours appear normal. Heart size is normal. IMPRESSION: No displaced rib fracture or pneumothorax. Reviewed by: Peter Newberry MD on 05/01/2023 3:26 PM PDT Approved by: Peter Newberry MD on 05/01/2023 3:26 PM PDT Station ID: [id number]
== END 2023-05-01 10:45 | disposition home or self-care (01) ==
LOC: DI 10:44
PROVIDERS: ATTEND Registered Nurse
DX: R07.81 Pleurodynia (principal); M94.0 Chondrocostal junction syndrome [Tietze]

== ENCOUNTER 2024-01-17 10:13 | Outpatient (CLI) | payer OTHER ==
[2024-01-17 10:51] LABS: THYROID STIMULATING HORMONE 0.69 uIU/mL (0.34-5.60)
== END 2024-01-17 10:14 | disposition home or self-care (01) ==
LOC: LAB 10:13
PROVIDERS: ATTEND Nurse Practitioner
DX: N95.1 Menopausal and female climacteric states (principal)
CPT/HCPCS: 36415; 84439; 84443